=== PATIENT | male | born 1980 | race Caucasian/White ===

== ENCOUNTER 2021-06-23 12:11 | Emergency (ER) | payer OTHER ==
[~2021-06-23] VITALS: Ht 172.7 cm; Wt 59.7 kg
[2021-06-23 12:14] VITALS: BP 147/87
[2021-06-23] MEDS ORDERED: ENVARSUS XR1 MG PO (12:15)
[2021-06-23] MEDS ORDERED: BLOOD PRESSURE MED (12:15)
[2021-06-23] MEDS ORDERED: SODIUM BICARBO650 M3 PO (12:37)
[2021-06-23] MEDS ORDERED: SUBOXONE 8 MG-1 EAC3 SUBLING (12:37)
[2021-06-23] MEDS ORDERED: PREGABALIN75 MG PO (12:37)
[2021-06-23] MEDS ORDERED: TESTOSTERO200 MG/11 IM (12:37)
[2021-06-23] MEDS ORDERED: CELLCEPT 250 M250 MG PO (12:37)
[2021-06-23] MEDS ORDERED: NICARDIPINE HCL30 MG PO (12:38)
[2021-06-23] MEDS ORDERED: BUPRENORPHINE HC2 MG PO (12:38)
[2021-06-23] MEDS ORDERED: ACYCLOVIR 400400 MG PO (12:38)
[2021-06-23 12:40] LABS: ABSOLUTE LYMPHOCYTES 0.7 thou/uL (0.8-5.3); ABSOLUTE MONOCYTES 0.9 thou/uL (0.0-1.2); BASOPHILS 0.3 %; EOSINOPHILS 0.3 %; HEMATOCRIT 40.8 % (42.0-52.0); HEMOGLOBIN 14.2 gm/dL (14.0-18.0); LYMPHOCYTES 9.4 %; MCH 30.4 pg (26.0-34.0); MCHC 34.8 g/dL (28.0-37.0); MCV 87.6 fL (80.0-100.0); MONOCYTES 12.1 %; MPV 7.2 fl. (7.2-11.1); NUCLEATED RBCS 0 /100WBC; PLATELET COUNT* 188 thou/uL (150-400); POLYS 77.9 %; RBC 4.65 mil/uL (4.50-6.00); RDW-CV 16.7 % (10.5-14.5); WBC 7.7 thou/uL (4.0-11.0)
[2021-06-23 12:46] LABS: CALCIUM 8.7 mg/dL (8.5-10.1); POTASSIUM 3.5 mmol/L (3.5-5.1)
[2021-06-23 12:50] LABS: ALBUMIN 4.2 g/dL (3.4-5.0); TOTAL BILIRUBIN 0.9 mg/dL (<0.1-1.0); TOTAL PROTEIN 6.8 g/dL (6.4-8.2)
[2021-06-23 15:15] LABS: URINE BILIRUBIN NEGATIVE (Negative); URINE BLOOD TRACE (Negative); URINE CLARITY CLEAR; URINE COLOR YELLOW; URINE GLUCOSE-RANDOM NEGATIVE (Negative); URINE KETONES NEGATIVE (Negative); URINE LEUKOCYTES-REFLEX NEGATIVE (Negative); URINE NITRITE-REFLEX NEGATIVE (Negative); URINE PROTEIN 1+ (Negative); URINE SPECIFIC GRAVITY 1.025 (1.005-1.030); URINE UROBILINOGEN 0.2 E.U./dl (0.2-1.0)
[2021-06-23 15:26] LABS: AMP/METHAMP Negative (Negative); BARBITURATES Negative (Negative); BENZODIAZEPINES Negative (Negative); COCAINE Negative (Negative); METHADONE Negative (Negative); OPIATES Negative (Negative); PCP Negative (Negative); THC Negative (Negative)
[2021-06-23] MEDS ORDERED: ONDANSETRON ODT4 MG PO (15:40)
[2021-06-23 16:19] VITALS: BP 141/70
--- NOTE | 2021-06-24 13:29 | EKG ---
[place] [address] ELECTROCARDIOGRAM REPORT Name: JOSELUIS CASTANEDA Room: [facility]#: [id number] Admission: 06/23/21 Attend Phys: Discharge: 06/23/21 Date of : 82 Date of Service: 06/23/21 1227 Report #: [id number] THIS REPORT FOR: //name// [facility] ED Test Date: 2021-06-23 Test Time: 12:27:47 Pat Name: JOSELUIS CASTANEDA Department: Room: [facility] Gender: M Manager Baby: PRUDENCE : 1980 Requested By: Bo Mackenzie Order Number: [id number] MD: Ti Washington Measurements Intervals [place] Rate: 70 P: 24 ME: 138 QRS: 53 QRSD: 104 T: 43 QT: 394 QTc: 426 Interpretive Statements Sinus rhythm artifact noted Nonspecific T abnormalities, lateral leads ST elevation, consider early repolarization Baseline wander in lead(s) III,V2 No previous ECG available for comparison Electronically Signed On 06-24-2021 13:29:46 CDT by Ti Washington [email or web address] <ELECTRONICALLY SIGNED> By: Ti Washington MD, [facility] 06/24/21 1329 1227 1227 Ti Washington MD, [facility] /EPI
== END 2021-06-23 16:20 | disposition home or self-care (01) ==
LOC: M.ERS 12:11 → M.TBA-ER 14:47 → M.ERS 14:47
PROVIDERS: Physician Assistant
DX: U07.1 COVID-19 (principal); R11.2 Nausea with vomiting, unspecified; I10 Essential (primary) hypertension; Z79.899 Other long term (current) drug therapy; Z94.0 Kidney transplant status

== ENCOUNTER 2021-06-24 07:22 | Emergency (ER) | payer OTHER ==
[~2021-06-24] VITALS: Ht 172.7 cm; Wt 64.0 kg
[~2021-06-24 07:22] MED LIST: ACYCLOVIR 400400 MG PO; BLOOD PRESSURE MED; BUPRENORPHINE HC2 MG PO; CELLCEPT 250 M250 MG PO; ENVARSUS XR1 MG PO; NICARDIPINE HCL30 MG PO; ONDANSETRON ODT4 MG PO; PREGABALIN75 MG PO; SODIUM BICARBO650 M3 PO; SUBOXONE 8 MG-1 EAC3 SUBLING; TESTOSTERO200 MG/11 IM
[2021-06-24 08:04] LABS: ABSOLUTE LYMPHOCYTES 0.7 thou/uL (0.8-5.3); ABSOLUTE MONOCYTES 0.8 thou/uL (0.0-1.2); ABSOLUTE NEUTROPHILS 3.2 thou/uL (1.6-8.1); BASOPHILS 0.3 %; HEMATOCRIT 40.7 % (42.0-52.0); HEMOGLOBIN 14.2 gm/dL (14.0-18.0); MCH 30.6 pg (26.0-34.0); MCV 87.6 fL (80.0-100.0); MONOCYTES 16.5 %; MPV 7.7 fl. (7.2-11.1); NUCLEATED RBCS 0 /100WBC; PLATELET COUNT* 173 thou/uL (150-400); POLYS 69.2 %; RBC 4.64 mil/uL (4.50-6.00); RDW-CV 16.5 % (10.5-14.5); WBC 4.6 thou/uL (4.0-11.0)
[2021-06-24 08:11] LABS: CALCIUM 8.8 mg/dL (8.5-10.1); POTASSIUM 3.8 mmol/L (3.5-5.1)
[2021-06-24 08:16] LABS: ALBUMIN 3.8 g/dL (3.4-5.0); TOTAL BILIRUBIN 1.2 mg/dL (<0.1-1.0); TOTAL PROTEIN 6.6 g/dL (6.4-8.2)
[2021-06-24 09:37] VITALS: BP 139/85
== END 2021-06-24 09:38 | disposition home or self-care (01) ==
LOC: M.ERS 07:22
PROVIDERS: Emergency Medicine
DX: K85.90 Acute pancreatitis without necrosis or infection, unspecified (principal); I10 Essential (primary) hypertension; Z94.0 Kidney transplant status